=== PATIENT | male | born 2000 | race Caucasian/White ===

== ENCOUNTER 2024-08-05 08:48 | Emergency (ER) | payer OTHER ==
[~2024-08-05] VITALS: Ht 185.4 cm; Wt 107.6 kg
[2024-08-05 11:55] LABS: BASO # 0.1 10^3/uL (0.0-0.2); BASO % 0.9 % (0.0-1.0); EOS # 0.2 10^3/uL (0.0-0.5); EOS % 3.4 % (0.0-3.0); HEMOGLOBIN 14.8 g/dl (13.5-17.5); LYMPH # 2.3 10^3/uL (1.5-5.0); LYMPH % 38.3 % (24.0-44.0); MEAN CORPUSCULAR HEMOGLOBIN 28.3 pg (27.0-33.0); MEAN CORPUSCULAR HGB CONC 32.9 g/dl (32.0-36.5); MONO # 0.6 10^3/uL (0.0-0.8); MONO % 9.4 % (2.0-8.0); NEUTROPHILS # 2.8 10^3/uL (1.5-8.5); NEUTROPHILS % 47.7 % (36.0-66.0); PLATELET COUNT, AUTOMATED 213 10^3/uL (150-450); RED BLOOD COUNT 5.23 10^6/uL (4.30-6.10); WHITE BLOOD COUNT 5.9 10^3/uL (4.0-10.0)
[2024-08-05 12:20] LABS: LIPASE 26 U/L (12-53)
[2024-08-05 12:22] LABS: ALBUMIN 4.2 G/DL (3.2-5.2); ALKALINE PHOSPHATASE 99 U/L (46-116); ALT/SGPT 31 U/L (7.0-40); AST/SGOT 18 U/L (<34); BILIRUBIN,DIRECT 0.3 MG/DL (<0.4); BILIRUBIN,TOTAL 0.9 MG/DL (0.3-1.2); BLOOD UREA NITROGEN 10 MG/DL (9-23); CALCIUM LEVEL 9.5 MG/DL (8.5-10.1); CARBON DIOXIDE LEVEL 30 MMOL/L (20-31); CHLORIDE LEVEL 107 MMOL/L (98-107); CREATININE FOR GFR 0.94 MG/DL (0.70-1.30); GLOMERULAR FILTRATION RATE > 60.0 (>60); GLUCOSE, FASTING 92 MG/DL (60-100); POTASSIUM SERUM 4.4 MMOL/L (3.5-5.1); SODIUM LEVEL 140 MMOL/L (136-145); TOTAL PROTEIN 7.5 G/DL (5.7-8.2)
[2024-08-05 12:42] VITALS: BP 123/81; TEMP 97.4; O2SAT 99
== END 2024-08-05 12:43 | disposition home or self-care (01) ==
LOC: M ED 08:48
DX: K29.00 Acute gastritis without bleeding (principal); F17.200 Nicotine dependence, unspecified, uncomplicated; F10.10 Alcohol abuse, uncomplicated

== ENCOUNTER 2024-09-03 09:38 | Emergency (ER) | payer OTHER ==
[~2024-09-03] VITALS: Ht 185.4 cm; Wt 106.4 kg
[2024-09-03 10:55] LABS: RSV AMPLIFICATION NEGATIVE (NEGATIVE)
[2024-09-03] MEDS: ONDANSETRON 4MG ORAL DISINTEGRATING TAB PO ONE (11:31)
[2024-09-03] MEDS: KETOROLAC 60MG 2ML VIAL IM ONE (11:32)
[2024-09-03 12:14] VITALS: O2SAT 97
[2024-09-03] MEDS ORDERED: AZIT-12 PO (12:58)
[2024-09-03] MEDS ORDERED: ONDA-282 PO (12:58)
[2024-09-03] MEDS ORDERED: BENZ200C70 PO (12:58)
[2024-09-03 13:05] VITALS: BP 121/70; TEMP 99.3; O2SAT 98
== END 2024-09-03 13:06 | disposition home or self-care (01) ==
LOC: M ED 09:38
DX: J15.7 Pneumonia due to Mycoplasma pneumoniae (principal); Z79.2 Long term (current) use of antibiotics; Z79.899 Other long term (current) drug therapy
CPT/HCPCS: 71045; 87486; 87581; 87631; 87633; 87798; 96372; 99284; J1885

== ENCOUNTER 2024-12-02 10:23 | Emergency (ER) | payer OTHER ==
[~2024-12-02] VITALS: Ht 185.4 cm; Wt 114.2 kg
[~2024-12-02 10:23] MED LIST: AZIT-12 PO; BENZ200C70 PO; ONDA-282 PO
[2024-12-02 12:08] LABS: Trichomonas vaginalis (AMP) NOT DETECTED (NEGATIVE)
[2024-12-02 12:16] LABS: LIPASE 30 U/L (12-53)
[2024-12-02 12:17] LABS: BASO # 0.1 10^3/uL (0.0-0.2); EOS # 0.3 10^3/uL (0.0-0.5); EOS % 4.1 % (0.0-3.0); HEMATOCRIT 46.4 % (42.0-52.0); HEMOGLOBIN 15.7 g/dl (13.5-17.5); LYMPH # 2.5 10^3/uL (1.5-5.0); LYMPH % 41.4 % (24.0-44.0); MEAN CORPUSCULAR HGB CONC 33.8 g/dl (32.0-36.5); MEAN CORPUSCULAR VOLUME 82.7 fl (80.0-96.0); MONO # 0.6 10^3/uL (0.0-0.8); MONO % 10.2 % (2.0-8.0); NEUTROPHILS # 2.6 10^3/uL (1.5-8.5); NEUTROPHILS % 43.1 % (36.0-66.0); PLATELET COUNT, AUTOMATED 249 10^3/uL (150-450); RED BLOOD COUNT 5.61 10^6/uL (4.30-6.10); WHITE BLOOD COUNT 6.1 10^3/uL (4.0-10.0)
[2024-12-02 12:18] LABS: ALBUMIN 4.1 G/DL (3.2-5.2); ALKALINE PHOSPHATASE 72 U/L (40-129); ALT/SGPT 47 U/L (7.0-40); AST/SGOT 21 U/L (<34); BILIRUBIN,DIRECT 0.2 MG/DL (<0.4); BILIRUBIN,TOTAL 0.7 MG/DL (0.3-1.2); BLOOD UREA NITROGEN 14 MG/DL (9-23); CALCIUM LEVEL 9.1 MG/DL (8.5-10.1); CARBON DIOXIDE LEVEL 29 MMOL/L (20-31); CHLORIDE LEVEL 105 MMOL/L (98-107); CREATININE FOR GFR 0.87 MG/DL (0.70-1.30); GLOMERULAR FILTRATION RATE > 60.0 (>60); GLUCOSE, FASTING 89 MG/DL (60-100); POTASSIUM SERUM 4.5 MMOL/L (3.5-5.1); SODIUM LEVEL 140 MMOL/L (136-145); TOTAL PROTEIN 7.9 G/DL (5.7-8.2)
[2024-12-02 12:32] LABS: GC DNA AMPLIFICATION NEGATIVE (NEGATIVE)
[2024-12-02 12:48] VITALS: BP 141/84; TEMP 98.1; O2SAT 98
== END 2024-12-02 12:54 | disposition home or self-care (01) ==
LOC: M ED 10:23
DX: R10.9 Unspecified abdominal pain (principal)

== ENCOUNTER 2025-03-06 07:36 | Emergency (ER) | payer OTHER ==
[~2025-03-06] VITALS: Ht 185.4 cm; Wt 114.3 kg
[2025-03-06] MEDS ORDERED: [UNRECOGNIZED DRUG - CODE] TOP (09:07)
[2025-03-06] MEDS ORDERED: NAPR-837 PO (09:07)
[2025-03-06 09:26] VITALS: BP 134/85; TEMP 97.5; O2SAT 100
== END 2025-03-06 09:27 | disposition home or self-care (01) ==
LOC: M ED 07:36
DX: G57.12 Meralgia paresthetica, left lower limb (principal); M22.2X2 Patellofemoral disorders, left knee; L23.9 Allergic contact dermatitis, unspecified cause; Z79.899 Other long term (current) drug therapy

== ENCOUNTER 2025-03-16 16:07 | Emergency (ER) | payer OTHER ==
[~2025-03-16] VITALS: Ht 185.4 cm; Wt 110.9 kg
[~2025-03-16 16:07] MED LIST changes: +NAPR-837 PO; +[UNRECOGNIZED DRUG - CODE] TOP
[2025-03-16] MEDS ORDERED: AMOX500C PO (19:10)
[2025-03-16] MEDS: AMOXICILLIN 500 MG CAP PO ONE (19:15)
[2025-03-16 19:19] VITALS: BP 137/86; TEMP 99.1; O2SAT 99
== END 2025-03-16 19:21 | disposition home or self-care (01) ==
LOC: M ED 16:07
DX: J02.0 Streptococcal pharyngitis (principal); Z79.2 Long term (current) use of antibiotics; Z79.899 Other long term (current) drug therapy